=== PATIENT | male | born 1970 | race Caucasian/White ===

== ENCOUNTER 2017-04-29 04:01 | Inpatient (IN) ==
[2017-04-29] MEDS ORDERED: 0.9 % Sodium Chloride 1,000 ML IVC ONE (05:02)
--- NOTE | 2017-04-29 05:15 | Emergency Department Note ---
Disposition Clinical Impression: UTI (urinary tract infection) Qualifiers: Urinary tract infection type: acute cystitis Hematuria presence: without hematuria Qualified Code(s): N30.00 - Acute cystitis without hematuria Sacral decubitus ulcer Qualifiers: Pressure ulcer stage: stage 1 Qualified Code(s): L89.151 - Pressure ulcer of sacral region, stage 1 Disposition: Still a Patient Condition: Good Abdominal Pain HPI - General Chief Complaint: ED Abdominal Pain Stated Complaint: "Can't Urinate/Constipated/Swollen Testicle" Time Seen by Provider: 04/29/17 04:18 Source: patient, family Mode of arrival: ambulatory Limitations: no limitations Nursing Notes Reviewed: Yes Vital Signs Reviewed: Yes - History of Present Illness HPI Narrative: Patient here for evaluation of abdominal pain, testicular pain, dysuria. Patient has a history of otitis. Patient has had 3 days of constipation. Patient began having swelling of his testicle yesterday. Patient self Daily and is uncircumcised. Patient has been having some burning in the penile area. Patient has had a history of both constipation, urinary tract infections, orchitis. Patient states that he has given individual symptoms that are consistent with previous episodes of symptom. Patient states he had a fever of 102 yesterday. Patient is currently tachycardic 119. 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 Patient does have some feeling that his unable to feel specific sensations. Patient notices when he is getting sick 2 to fevers as well as increase headaches. Patient has been experiencing these which she relates to pain in his typical pain and headaches. Abdominal pain is more of a sharp pain located in the left side that is worse with movements and deep palpation. Not associated with nausea vomiting. Patient states that he does feel somewhat bloated and full. Patient's left testicular pain is worse with movements. Associated swelling. Similar to prior orchitis. Patient's penile "leaking". It is similar to his previous urinary tract infections. states that he has been having chills with shakes which she knows is related to possible urinary tract infection. Pain Scale: 5 - Related Data Home Medications Medication Instructions Recorded Confirmed Baclofen [Lioresal] 20 mg PO BID PRN 04/29/17 04/29/17 HYDROcodone/Acet 7.5/325 mg [[place] 1 tab PO QID PRN 04/29/17 04/29/17 7.5-325 mg] Psyllium [Metamucil Fiber Singles 1 packet PO BID 04/29/17 04/29/17 Packet] Allergies Allergy/AdvReac Type Severity Reaction Status Date / Time No Known Allergies Allergy Verified 04/29/17 04:09 Constitutional: Reports: fever, chills, weakness Cardiovascular: Denies: chest pain, palpitations Respiratory: Denies: cough, dyspnea Gastrointestinal: Reports: abdominal pain, constipation. Denies: nausea, vomiting Genitourinary: Reports: dysuria Musculoskeletal: Denies: back pain Integumentary: Reports: lesions (Over the sacrum that is healing but is still stage I sacral decubitus). Denies: abrasion Neurological: Reports: headache, weakness Endocrine: Reports: fatigue Abdominal Pain PMH - Past Medical History Medical history: Reports: other - Social History Smoking status: Current every day smoker Alcohol use: Reports: none Drug use: Reports: none Physical Exam - General Limitations: no limitations General appearance: alert, in no apparent distress - Head Head exam: atraumatic, normocephalic - Eye Eye exam: Present: normal appearance - Neck Neck exam: Present: normal inspection - Chest Chest inspection: Present: normal inspection, symmetric chest wall rise. Absent : tenderness - Respiratory Respiratory exam: Present: normal lung sounds bilaterally, respiratory distress - Cardiovascular Cardiovascular exam: Present: normal rhythm, tachycardia - Abdominal Exam Abdominal exam: Present: soft, tenderness (Left lower quadrant) - Male exam: Present: other (Uncircumcised.) Scrotal exam: testicular tenderness: left, testicular swelling: left - Back Exam Back exam: Present: other (Erythema and some mild superficial skin breakdown in a 7 cm x 10 cm area over the sacrum) - Neurological Exam Neurological exam: Present: alert, oriented X3 - Psychiatric Psychiatric exam: Present: normal affect, normal mood Course - Reevaluation(s) Reevaluation #1: Concern for urinary tract infection as well as possible phlegmon versus abscess. Patient will be given vancomycin as well as Zosyn. Testicular ultrasound is pending. Patient was signed out to Dr. Cox and Dr. Grove. Vital Signs Temperature 98.4 F 04/29/17 04:06 Pulse Rate 119 04/29/17 04:06 Respiratory Rate 16 04/29/17 04:06 Blood Pressure 97/63 04/29/17 04:06 O2 Sat by Pulse Oximetry 99 04/29/17 04:06 Temperature 98.4 F 04/29/17 22:24 Pulse Rate 91 04/30/17 05:48 Respiratory Rate 16 04/30/17 05:48 Blood Pressure 119/70 04/30/17 05:48 O2 Sat by Pulse Oximetry 96 04/30/17 05:48 Oxygen Delivery Oxygen Delivery Room Air Abdominal Pain - Lab Data Result diagrams: 04/30/17 04:15 04/30/17 04:15 Lab Results 04/29/17 04/29/17 04/29/17 Range/Units 05:00 05:00 05:30 WBC 13.7 H (4.3-11.1) K/mcL RBC 4.86 (4.19-5.50) M/mcL Hgb 14.6 (12.9-16.9) g/dL Hct 44.3 (37.5-50.1) % MCV 91.2 (83.0-100.0) fL MCH 30.0 (28.0-33.3) pg MCHC 33.0 (31.6-35.5) g/dL RDW 13.0 (11.5-14.5) % Plt Count 268 (140-400) K/mcL MPV 9.7 (9.4-12.4) fL Immature Gran % 0.5 (0-4) % Seg Neutrophils % 82.7 % Lymphocytes % 6.1 % Monocytes % 10.6 % Eosinophils % 0.0 % Basophils % 0.1 % Neutrophils # 11.3 H (1.6-8.9) K/mcL Lymphocytes # 0.8 (0.6-4.6) K/mcL Monocytes # 1.5 H (0.0-1.3) K/mcL Eosinophils # 0.0 (0.0-0.6) K/mcL Basophils # 0.0 (0.0-0.2) K/mcL Sodium 136 (136-145) mEq/L Potassium 3.8 (3.5-4.5) mEq/L Chloride 103 (98-109) mEq/L Carbon Dioxide 24 (19-29) mEq/L BUN 9 (8-26) mg/dL Creatinine 0.85 (0.72-1.25) mg/dL Est GFR ( Amer) > 60 (> 60) Est GFR (Non-Af Amer) > 60 (> 60) BUN/Creatinine Ratio 11 (6-26) Glucose 104 H (70-99) mg/dL Calculated Osmolality 281 (280-300) Calcium 9.3 (8.6-10.8) mg/dL Total Bilirubin 0.7 (0.2-1.2) mg/dL Direct Bilirubin 0.3 (0.0-0.5) mg/dL Indirect Bilirubin 0.4 (0.0-1.2) mg/dL AST 9 (5-34) Units/L ALT 7 (0-55) Units/L Alkaline Phosphatase 46 (38-126) Units/L Serum Total Protein 7.9 (6.0-8.3) g/dL Albumin 3.6 (3.5-5.0) g/dL Globulin 4.3 H (2.4-3.5) g/dL Albumin/Globulin Ratio 0.8 L (1.1-2.2) Lipase 14 (8-78) Units/L Urine Color Dark Yellow (Yellow) Urine Clarity Hazy (Clear) Urine pH 6.0 (5.0-8.0) pH Units Ur Specific [place] > 1.030 H (1.010-1.025) Urine Protein 30 H (Neg-Trace) mg/dL Urine Glucose (UA) Normal (Normal) mg/dL Urine Ketones 15 H (Negative) mg/dL Urine Blood Moderate H (Negative) Urine Nitrite Positive A (Negative) Urine Bilirubin Small H (Negative) Urine Urobilinogen Normal (Normal) mg/dL Ur Leukocyte Esterase Moderate H (Negative) Urine Microscopic RBC 0-3 (0-3) per hpf Urine Microscopic WBC TNTC H (0-3) per hpf Ur Squamous Epith Cells Moderate H (None-Few) per lpf Urine Bacteria Few (None-Few) per hpf Hyaline Casts Test Not Performed Ur Culture Indicated? YES A (NO) Attestation Statement - Attestation Attestation: I, Antoni Vyas, examined this patient and my medical decision-making was reviewed with the ENDOSCOPE TECHNICIAN/PA/Advanced Practice Nurse/Resident Physician. I agree with the documented findings, disposition and treatment plan as described except to the extent set forth below. 47-year-old male presents with concerns of difficulty with urination and a swollen testicle. Patient states he sustained an injury which caused paralysis distal from T5. Patient states he does not have sensation or motor function below the level of the nipples. Patient states he has had orchitis multiple times in the past and has required admission and antibiotics previously. Patient self catheterizes but states he has had increased difficulty relieving himself of urine within the past 24-[address] of the abdomen shows cellulitis/abscess of the sacrum. Physical exam shows significantly swollen left testicle. Patient was started on antibiotics for orchitis as well as urinary tract infection. Patient care transferred to the day physician pending reevaluation, disposition.
[2017-04-29 05:20] LABS: Basophils % 0.1 %; Hematocrit 44.3 % (37.5-50.1); Hemoglobin 14.6 g/dL (12.9-16.9); Immature Granulocytes % 0.5 % (0-4); Lymphocytes # 0.8 K/mcL (0.6-4.6); Lymphocytes % 6.1 %; Mean Corpuscular Volume 91.2 fL (83.0-100.0); Mean Platelet Volume 9.7 fL (9.4-12.4); Monocytes # 1.5 K/mcL (0.0-1.3); Monocytes % 10.6 %; Neutrophils # 11.3 K/mcL (1.6-8.9); Platelet Count 268 K/mcL (140-400); Red Blood Count 4.86 M/mcL (4.19-5.50); Segmented Neutrophils % 82.7 %
[2017-04-29 05:43] LABS: Alanine Aminotransferase 7 Units/L (0-55); Albumin 3.6 g/dL (3.5-5.0); Albumin/Globulin Ratio 0.8 (1.1-2.2); Alkaline Phosphatase 46 Units/L (38-126); Aspartate Amino Transferase 9 Units/L (5-34); BUN/Creatinine Ratio 11 (6-26); Bilirubin,Direct 0.3 mg/dL (0.0-0.5); Bilirubin,Indirect 0.4 mg/dL (0.0-1.2); Bilirubin,Total 0.7 mg/dL (0.2-1.2); Blood Urea Nitrogen 9 mg/dL (8-26); Calcium 9.3 mg/dL (8.6-10.8); Carbon Dioxide 24 mEq/L (19-29); Chloride 103 mEq/L (98-109); Globulin 4.3 g/dL (2.4-3.5); Glucose 104 mg/dL (70-99); Lipase 14 Units/L (8-78); Osmolality,Calculated 281 (280-300); Potassium 3.8 mEq/L (3.5-4.5); Sodium 136 mEq/L (136-145); Total Protein 7.9 g/dL (6.0-8.3); eGFR For African Americans > 60 (> 60); eGFR For Non-African Americans > 60 (> 60)
[2017-04-29 05:45] LABS: Bilirubin,Urine Small (Negative); Blood,Urine Moderate (Negative); Color,Urine Dark Yellow (Yellow); Glucose,Urine (UA) Normal (Normal); Ketones,Urine 15 mg/dL (Negative); Leukocyte Esterase,Urine Moderate (Negative); Nitrite,Urine Positive (Negative); Protein,Urine 30 mg/dL (Neg-Trace); Specific Gravity,Urine > 1.030 (1.010-1.025); Urobilinogen,Urine Normal (Normal)
[2017-04-29 05:47] LABS: Squamous Epithelial Cell,Urine Moderate per lpf (None-Few); WBC,Urine TNTC per hpf (0-3)
[2017-04-29 05:49] LABS: Clarity,Urine Hazy (Clear)
[2017-04-29 06:02] LABS: Bacteria,Urine Few per hpf (None-Few); RBC,Urine 0-3 per hpf (0-3)
[2017-04-29] MEDS ORDERED: Piperacillin/Tazobactam 3.375 GM in D5% in Water (Mini-Bag+) 100 ML IVPB ONE (06:43)
[2017-04-29] MEDS ORDERED: Vancomycin 1,000 MG in D5% in Water 250 ML IVPB ONE (06:43)
--- NOTE | 2017-04-29 07:47 | Emergency Department Note ---
Disposition Clinical Impression: UTI (urinary tract infection) Qualifiers: Urinary tract infection type: acute cystitis Hematuria presence: with hematuria Qualified Code(s): N30.01 - Acute cystitis with hematuria Sacral decubitus ulcer Qualifiers: Pressure ulcer stage: stage 1 Qualified Code(s): L89.151 - Pressure ulcer of sacral region, stage 1 Disposition: Still a Patient Condition: Good Referrals: Avani Newberry, MARKETING SERVICES MANAGER [Primary Care Provider] - Forms: ED Satisfaction Letter, Work/School Release General Adult HPI - General Chief complaint: ED Abdominal Pain Stated complaint: "Can't Urinate/Constipated/Swollen Testicle" Time Seen by Provider: 04/29/17 04:18 Source: patient, family Mode of arrival: ambulatory Limitations: no limitations - History of Present Illness Pain Scale: 5 - Related Data Home Medications Medication Instructions Recorded Confirmed Baclofen [Lioresal] 20 mg PO BID PRN 04/29/17 04/29/17 HYDROcodone/Acet 7.5/325 mg [[place] 1 tab PO QID PRN 04/29/17 04/29/17 7.5-325 mg] Psyllium [Metamucil Fiber Singles 1 packet PO BID 04/29/17 04/29/17 Packet] Allergies Allergy/AdvReac Type Severity Reaction Status Date / Time No Known Allergies Allergy Verified 04/29/17 04:09 Constitutional: Reports: fever, chills, weakness Cardiovascular: Denies: chest pain, palpitations Respiratory: Denies: cough, dyspnea Gastrointestinal: Reports: abdominal pain, constipation. Denies: nausea, vomiting Genitourinary: Reports: dysuria Musculoskeletal: Denies: back pain Integumentary: Reports: lesions (Over the sacrum that is healing but is still stage I sacral decubitus). Denies: abrasion Neurological: Reports: headache, weakness Endocrine: Reports: fatigue Past Medical History - Past Medical History Medical history: Reports: other - Social History Smoking Status: Current every day smoker Smokeless Tobacco Status: No Alcohol use: Reports: none Drug use: Reports: none Physical Exam - General Limitations: no limitations General appearance: alert, in no apparent distress Course Vital Signs Temperature 98.4 F 04/29/17 04:06 Pulse Rate 119 04/29/17 04:06 Respiratory Rate 16 04/29/17 04:06 Blood Pressure 97/63 04/29/17 04:06 O2 Sat by Pulse Oximetry 99 04/29/17 04:06 Temperature 98.4 F 04/29/17 04:06 Pulse Rate 119 04/29/17 04:06 Respiratory Rate 16 04/29/17 04:06 Blood Pressure 97/63 04/29/17 04:06 O2 Sat by Pulse Oximetry 99 04/29/17 04:06 Oxygen Delivery Oxygen Delivery Room Air Medical Decision Making - Lab Data Result diagrams: 04/29/17 05:00 04/29/17 05:00 Lab Results 04/29/17 04/29/17 04/29/17 Range/Units 05:00 05:00 05:30 WBC 13.7 H (4.3-11.1) K/mcL RBC 4.86 (4.19-5.50) M/mcL Hgb 14.6 (12.9-16.9) g/dL Hct 44.3 (37.5-50.1) % MCV 91.2 (83.0-100.0) fL MCH 30.0 (28.0-33.3) pg MCHC 33.0 (31.6-35.5) g/dL RDW 13.0 (11.5-14.5) % Plt Count 268 (140-400) K/mcL MPV 9.7 (9.4-12.4) fL Immature Gran % 0.5 (0-4) % Seg Neutrophils % 82.7 % Lymphocytes % 6.1 % Monocytes % 10.6 % Eosinophils % 0.0 % Basophils % 0.1 % Neutrophils # 11.3 H (1.6-8.9) K/mcL Lymphocytes # 0.8 (0.6-4.6) K/mcL Monocytes # 1.5 H (0.0-1.3) K/mcL Eosinophils # 0.0 (0.0-0.6) K/mcL Basophils # 0.0 (0.0-0.2) K/mcL Sodium 136 (136-145) mEq/L Potassium 3.8 (3.5-4.5) mEq/L Chloride 103 (98-109) mEq/L Carbon Dioxide 24 (19-29) mEq/L BUN 9 (8-26) mg/dL Creatinine 0.85 (0.72-1.25) mg/dL Est GFR ( Amer) > 60 (> 60) Est GFR (Non-Af Amer) > 60 (> 60) BUN/Creatinine Ratio 11 (6-26) Glucose 104 H (70-99) mg/dL Calculated Osmolality 281 (280-300) Calcium 9.3 (8.6-10.8) mg/dL Total Bilirubin 0.7 (0.2-1.2) mg/dL Direct Bilirubin 0.3 (0.0-0.5) mg/dL Indirect Bilirubin 0.4 (0.0-1.2) mg/dL AST 9 (5-34) Units/L ALT 7 (0-55) Units/L Alkaline Phosphatase 46 (38-126) Units/L Serum Total Protein 7.9 (6.0-8.3) g/dL Albumin 3.6 (3.5-5.0) g/dL Globulin 4.3 H (2.4-3.5) g/dL Albumin/Globulin Ratio 0.8 L (1.1-2.2) Lipase 14 (8-78) Units/L Urine Color Dark Yellow (Yellow) Urine Clarity Hazy (Clear) Urine pH 6.0 (5.0-8.0) pH Units Ur Specific [place] > 1.030 H (1.010-1.025) Urine Protein 30 H (Neg-Trace) mg/dL Urine Glucose (UA) Normal (Normal) mg/dL Urine Ketones 15 H (Negative) mg/dL Urine Blood Moderate H (Negative) Urine Nitrite Positive A (Negative) Urine Bilirubin Small H (Negative) Urine Urobilinogen Normal (Normal) mg/dL Ur Leukocyte Esterase Moderate H (Negative) Urine Microscopic RBC 0-3 (0-3) per hpf Urine Microscopic WBC TNTC H (0-3) per hpf Ur Squamous Epith Cells Moderate H (None-Few) per lpf Urine Bacteria Few (None-Few) per hpf Hyaline Casts Test Not Performed Ur Culture Indicated? YES A (NO) Attestation Statement - Attestation Attestation: Care assumed from at 7 AM pending admission to the medicine service. Patient presents with systemic symptoms and was tachycardic at triage. He was found to have an early cellulitis of his buttocks by CT scan as well as epididymitis. He has a history of paraplegia. He straight caths. Buttocks initiated by the previous team. Patient to be admitted to the medicine service. accepts
[2017-04-29] MEDS ORDERED: Acetaminophen 325 MG TABLET PO PRN (07:59)
[2017-04-29] MEDS ORDERED: Naloxone 0.4 MG/ML INJ IVP PRN (07:59)
[2017-04-29] MEDS ORDERED: Ondansetron 4 MG/2 ML VIAL IVP PRN (07:59)
--- NOTE | 2017-04-29 08:07 | Internal Med History&Physical ---
Date of Encounter: 04/29/17 Time of Encounter: 08:03 Assessment and Plan (1) Sepsis Current visit: Yes Status: Acute Sepsis secondary to left acute epididymitis in combination with sacral cellulitis with possible early phlegmon Start doxycycline to cover for acute cellulitis and other possible infectious agents that can cause epididymitis Start Levaquin as epididymoorchitis can be caused by enteric bacteria Check gonococcus and Chlamydia, may administer Rocephin if positive for gonococcus Urine culture, IV fluids, lactic acid, blood cultures Consider urology consult if not improving, consider surgical consult if pressure ulcer is not improving as well Omeprazole for GI prophylaxis and subcutaneous heparin for deep prophylaxis. The patient will be admitted as inpatient, expected to stay more than 2 midnights. Full code. Time spent on this admission 40 minutes. I risk due to sepsis Qualifiers: Sepsis type: sepsis due to unspecified organism Qualified Code(s): A41.9 - Sepsis, unspecified organism (2) Tobacco abuse Current visit: Yes Status: Acute Smoking cessation counseling given for 5 minutes. Nicotine patch (3) Leukocytosis Current visit: Yes Status: Acute Secondary to sepsis Qualifiers: Leukocytosis type: unspecified Qualified Code(s): D72.829 - Elevated white blood cell count, unspecified (4) Paraplegia Current visit: Yes Status: Acute Secondary to T5 spinal injury in the past (5) Sacral decubitus ulcer Current visit: Yes Status: Acute Qualifiers: Pressure ulcer stage: stage 1 Qualified Code(s): L89.151 - Pressure ulcer of sacral region, stage 1 (6) UTI (urinary tract infection) Current visit: Yes Status: Acute History of recurrent urinary tract infections Qualifiers: Urinary tract infection type: acute cystitis Hematuria presence: without hematuria Qualified Code(s): N30.00 - Acute cystitis without hematuria Internal Medicine - H&P: HPI Chief complaint: Fever Admitted From: Emergency Dept History of present illness: Mr. 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 His UA shows positive nitrates too numerous to count white blood cells, ultrasound shows left epididymitis. A CT scan of the abdomen and pelvis showed left epididymitis and cellulitis on the sacrum that appears to have possible an early phlegmon. Patient says that he had an ulcer in the sacrum has been improving and denies any sensitivity that area. The patient is tachycardic at 119 blood pressure 97/63 white blood cell count 13.7. Received vancomycin and Zosyn at the emergency room. Denies any other complaints Past Med Surg Social Fam HX - Past Medical History Medical history: other (UTIs, tobacco use, paraplegia) - Past Surgical History Surgical History: other (Spinal injury at T5, right shoulder surgery) - Social History Smoking Status: Current every day smoker Packs per day: 1 Smokeless Tobacco Status: No Alcohol use: none Drug use: none - Additional Family History Additional family history: Mother with ovarian cancer Internal Medicine - H&P: Meds Baclofen [Lioresal] 20 mg PO BID PRN 04/29/17 [History] HYDROcodone/Acet 7.5/325 mg [[place] 7.5-325 mg] 1 tab PO QID PRN 04/29/17 [ History] Psyllium [Metamucil Fiber Singles Packet] 1 packet PO BID 04/29/17 [History] Allergies No Known Allergies Allergy (Verified 04/29/17 04:09) All Systems PM: A 10-system review of systems was performed and is negative for pertinent findings except as documented above in the HPI. Review of systems: Mild dysuria, weakness, fever. Other systems out of the 10 reviewed were negative - Constitutional Vitals: Temp Pulse Resp BP Pulse Ox 98.4 F 85 16 104/66 97 04/29/17 04:06 04/29/17 07:46 04/29/17 07:46 04/29/17 07:46 04/29/17 07:46 General appearance: Present: A&O X 3 - Head Head exam: Present: atraumatic, normocephalic - Eye Eye exam: Present: PERRL, conjuntiva pink, sclera anicteric Pupils: Present: PERRL - Neck Neck exam general surgery: Present: supple, trachea midline. Absent: lymphadenopathy - Respiratory Respiratory exam: Present: CTAB. Absent: accessory muscle use, rales, rhonchi, wheezes - Cardiovascular Cardiovascular exam: Present: RRR, +S1, +S2. Absent: diastolic murmur, gallop, rubs, systolic murmur - GI/Abdominal GI/Abdominal exam: Present: normal bowel sounds, soft, no peritoneal signs. Absent: distended, tenderness - Extremities Exam Extremities exam: Present: warm, radial pulses palpable and symetrical. Absent : calf tenderness, cyanotic, pedal edema - Neurological Exam Neurological exam: Present: CN II-XII intact, oriented X3. Absent: no focal deficits, pronater drift, facial droop, speech deficit - Skin Skin exam: Present: dry. Absent: intact Additional comments: Testicular tenderness on the left side, severe edema and erythema Stage I pressure ulcer on the sacrum with surrounding cellulitis Internal Med - H&P Results - Labs CBC & Chem 7: 04/29/17 05:00 04/29/17 05:00 Labs: Short CBC 04/29/17 Range/Units 05:00 WBC 13.7 H (4.3-11.1) K/mcL Hgb 14.6 (12.9-16.9) g/dL Hct 44.3 (37.5-50.1) % Plt Count 268 (140-400) K/mcL Neutrophils # 11.3 H (1.6-8.9) K/mcL BMP 04/29/17 05:00 Sodium 136 Potassium 3.8 Chloride 103 Carbon Dioxide 24 BUN 9 Creatinine 0.85 Glucose 104 H Calcium 9.3 Liver Function 04/29/17 Range/Units 05:00 Total Bilirubin 0.7 (0.2-1.2) mg/dL Direct Bilirubin 0.3 (0.0-0.5) mg/dL AST 9 (5-34) Units/L ALT 7 (0-55) Units/L Alkaline Phosphatase 46 (38-126) Units/L Albumin 3.6 (3.5-5.0) g/dL Urine 04/29/17 Range/Units 05:30 Urine Color Dark Yellow (Yellow) Urine Clarity Hazy (Clear) Urine pH 6.0 (5.0-8.0) pH Units Ur Specific [place] > 1.030 H (1.010-1.025) Urine Protein 30 H (Neg-Trace) mg/dL Urine Glucose (UA) Normal (Normal) mg/dL - Impressions ITS Impressions Scrotum Ultrasound 04/29/17 05:03 IMPRESSION: Left-sided epididymitis. D/ / Quinn Rucker MD / Quinn Rucker MD Interpreting Provider: Quinn Rucker MD Abdomen/Pelvis CT 04/29/17 05:04 IMPRESSION: 1. No acute findings in the abdomen or pelvis. 2. Probable left-sided epididymitis. 3. There is inflammation in the subcutaneous fat of the gluteal regions bilaterally with phlegmon or early abscess formation on the left. D/ / Quinn Rucker MD / Quinn Rucker MD Interpreting Provider: Quinn Rucker MD
[2017-04-29] MEDS: *HR* HYDROcodone/Acet 7.5/325 mg TABLET PO PRN ×2 (09:47→16:56)
[2017-04-29] MEDS: Ketorolac 30 MG/ML VIAL IVP PRN ×2 (11:08→21:48)
[2017-04-29] MEDS: Doxycycline 100 MG in 0.9 % Sodium Chloride Mini Bag 100 ML IVPB SCH ×2 (11:11→16:51)
[2017-04-29] MEDS: 0.9 % Sodium Chloride 1,000 ML IVC SCH ×2 (11:12→23:35)
[2017-04-29] MEDS: Nicotine 21 MG PATCH.TD24 TD SCH (11:18)
[2017-04-29] MEDS: Psyllium 1 PACKET POWD.PACK PO SCH ×2 (11:19→21:43)
[2017-04-29] MEDS: Baclofen 10 MG TABLET PO PRN ×2 (11:30→21:49)
[2017-04-29] MEDS: Levofloxacin 750 MG/150 ML 750 MG/150 ML BAG IVPB SCH (13:07)
[2017-04-29] MEDS: *HR* Heparin 5,000 UNIT/ML VIAL SQ SCH (16:52)
[2017-04-30 04:50] LABS: Hematocrit 35.3 % (37.5-50.1); Mean Corpuscular HGB Conc 33.1 g/dL (31.6-35.5); Mean Corpuscular Hemoglobin 30.2 pg (28.0-33.3); Mean Corpuscular Volume 91.2 fL (83.0-100.0); Platelet Count 206 K/mcL (140-400); Red Blood Count 3.87 M/mcL (4.19-5.50); Red Cell Distribution Width 13.1 % (11.5-14.5)
[2017-04-30 04:51] LABS: Hemoglobin 11.7 g/dL (12.9-16.9)
[2017-04-30 05:03] LABS: BUN/Creatinine Ratio 13 (6-26); Blood Urea Nitrogen 9 mg/dL (8-26); Calcium 8.7 mg/dL (8.6-10.8); Carbon Dioxide 24 mEq/L (19-29); Chloride 110 mEq/L (98-109); Glucose 82 mg/dL (70-99); Osmolality,Calculated 284 (280-300); Potassium 4.6 mEq/L (3.5-4.5); Sodium 138 mEq/L (136-145); eGFR For African Americans > 60 (> 60); eGFR For Non-African Americans > 60 (> 60)
[2017-04-30] MEDS: *HR* Heparin 5,000 UNIT/ML VIAL SQ SCH ×2 (05:47→16:28)
[2017-04-30] MEDS: Doxycycline 100 MG in 0.9 % Sodium Chloride Mini Bag 100 ML IVPB SCH ×2 (05:47→16:28)
[2017-04-30] MEDS: Ketorolac 30 MG/ML VIAL IVP PRN (05:53)
[2017-04-30] MEDS: *HR* HYDROcodone/Acet 7.5/325 mg TABLET PO PRN ×2 (09:38→20:38)
[2017-04-30] MEDS: Baclofen 10 MG TABLET PO PRN ×2 (09:39→20:39)
[2017-04-30] MEDS: Psyllium 1 PACKET POWD.PACK PO SCH ×2 (09:39→20:32)
[2017-04-30] MEDS: Nicotine 21 MG PATCH.TD24 TD SCH (09:39)
[2017-04-30] MEDS: Levofloxacin 750 MG/150 ML 750 MG/150 ML BAG IVPB SCH (09:41)
--- NOTE | 2017-04-30 11:29 | Internal Med Progress Note ---
Date of Encounter: 04/30/17 Time of Encounter: 11:29 - Assessment and plan (1) Sepsis Current Visit: Yes Status: Resolved Assessment and plan: Secondary to left acute epididymitis/UTI will continue IV abx at this time pt clinically improving, will continue IV abx at this time urine culture prelim positive for gram negative rods, will follow up official cultures will transition to PO abx in am and likely d/c in am if remains clinically stable overnight Qualifiers: Sepsis type: sepsis due to unspecified organism Qualified Code(s): A41.9 - Sepsis, unspecified organism (2) UTI (urinary tract infection) Current Visit: Yes Status: Acute Assessment and plan: as listed above Qualifiers: Urinary tract infection type: acute cystitis Hematuria presence: without hematuria Qualified Code(s): N30.00 - Acute cystitis without hematuria (3) Sacral decubitus ulcer Current Visit: Yes Status: Chronic Qualifiers: Pressure ulcer stage: stage 1 Qualified Code(s): L89.151 - Pressure ulcer of sacral region, stage 1 (4) Tobacco abuse Current Visit: Yes Status: Chronic Assessment and plan: smoking cessation counseling provided nicotine supplementation provided (5) Paraplegia Current Visit: Yes Status: Chronic - Subjective Interval history: Patient seen and examined at bedside. reports of feeling significantly better compared to previous day. Reported of clear penile discharge earlier this morning but states no purulent discharge noted. States he has noted decrease in scrotal edema and erythema. No overnight issues reported. Pt is wheelchair bound at baseline and straight caths at home. - Constitutional Vitals: Temp Pulse Resp BP Pulse Ox 98.3 F 89 20 110/67 96 04/30/17 10:54 04/30/17 10:54 04/30/17 10:54 04/30/17 10:54 04/30/17 05:48 General appearance: Present: cooperative, A&O X 3, no acute distress, answers questions appropriately - Head Head exam: Present: atraumatic, normocephalic - Eye Eye exam: Present: conjuntiva pink, sclera anicteric - Respiratory Respiratory exam: Present: CTAB. Absent: accessory muscle use, rales, rhonchi, wheezes - Cardiovascular Cardiovascular exam: Present: RRR, +S1, +S2. Absent: diastolic murmur, gallop, rubs, systolic murmur - GI/Abdominal GI/Abdominal exam: Present: normal bowel sounds, soft, no peritoneal signs. Absent: distended, tenderness - Additional comments: mild scrotal edema and erythema noted - Extremities Exam Extremities exam: Present: warm, radial pulses palpable and symetrical. Absent : calf tenderness, cyanotic, pedal edema - Neurological Exam Neurological exam: Present: alert, oriented X3 - Psychiatric Psychiatric exam: Present: normal affect, normal mood Internal Medicine: Result - Labs CBC & Chem 7: 04/30/17 04:15 04/30/17 04:15 Labs: Short CBC 04/30/17 Range/Units 04:15 WBC 9.6 (4.3-11.1) K/mcL Hgb 11.7 L D (12.9-16.9) g/dL Hct 35.3 L (37.5-50.1) % Plt Count 206 (140-400) K/mcL BMP 04/30/17 04:15 Sodium 138 Potassium 4.6 H Chloride 110 H Carbon Dioxide 24 BUN 9 Creatinine 0.68 L Glucose 82 Calcium 8.7 Consult Discharge Plan - Plan Referrals: Avani Newberry, CR[employer]ER [Primary Care Provider] -
[2017-05-01 04:08] VITALS: BP 128/78
[2017-05-01 05:19] LABS: Basophils % 0.2 %; Eosinophils # 0.1 K/mcL (0.0-0.6); Eosinophils % 1.3 %; Hematocrit 35.6 % (37.5-50.1); Hemoglobin 11.9 g/dL (12.9-16.9); Immature Granulocytes % 0.4 % (0-4); Lymphocytes % 17.5 %; Mean Corpuscular HGB Conc 33.4 g/dL (31.6-35.5); Mean Corpuscular Hemoglobin 30.8 pg (28.0-33.3); Mean Corpuscular Volume 92.2 fL (83.0-100.0); Mean Platelet Volume 10.4 fL (9.4-12.4); Monocytes # 0.5 K/mcL (0.0-1.3); Monocytes % 8.2 %; Platelet Count 219 K/mcL (140-400); Red Blood Count 3.86 M/mcL (4.19-5.50); Red Cell Distribution Width 13.2 % (11.5-14.5); Segmented Neutrophils % 72.4 %
[2017-05-01 05:39] LABS: BUN/Creatinine Ratio 9 (6-26); Blood Urea Nitrogen 6 mg/dL (8-26); Calcium 8.8 mg/dL (8.6-10.8); Carbon Dioxide 24 mEq/L (19-29); Chloride 109 mEq/L (98-109); Glucose 147 mg/dL (70-99); Magnesium 1.7 mg/dL (1.6-2.6); Osmolality,Calculated 290 (280-300); Phosphorous 2.7 mg/dL (2.3-4.7); Sodium 140 mEq/L (136-145); eGFR For African Americans > 60 (> 60); eGFR For Non-African Americans > 60 (> 60)
[2017-05-01 05:43] LABS: Potassium 3.5 mEq/L (3.5-4.5)
[2017-05-01] MEDS: Doxycycline 100 MG in 0.9 % Sodium Chloride Mini Bag 100 ML IVPB SCH (06:34)
[2017-05-01] MEDS: *HR* Heparin 5,000 UNIT/ML VIAL SQ SCH (06:35)
[2017-05-01] MEDS: Baclofen 10 MG TABLET PO PRN (09:13)
[2017-05-01] MEDS: Psyllium 1 PACKET POWD.PACK PO SCH (09:13)
[2017-05-01] MEDS: Nicotine 21 MG PATCH.TD24 TD SCH (09:13)
[2017-05-01] MEDS: Levofloxacin 750 MG/150 ML 750 MG/150 ML BAG IVPB SCH (09:14)
[2017-05-01] MEDS ORDERED: levoFLOXacin 750 MG TABLET PO SCH (10:15)
[2017-05-01] MEDS ORDERED: Doxycycline 100 MG CAPSULE PO SCH (10:15)
--- NOTE | 2017-05-01 10:29 | Discharge Summary ---
Date of Encounter: 05/01/17 Time of Encounter: 10:24 - Discharge Diagnosis (1) Epididymitis Priority: Primary Status: Acute (2) Sepsis Priority: Primary Status: Resolved Qualifiers: Sepsis type: sepsis due to unspecified organism Qualified Code(s): A41.9 - Sepsis, unspecified organism (3) UTI (urinary tract infection) Priority: Primary Status: Acute Qualifiers: Urinary tract infection type: acute cystitis Hematuria presence: without hematuria Qualified Code(s): N30.00 - Acute cystitis without hematuria (4) Sacral decubitus ulcer Priority: Secondary Status: Chronic Qualifiers: Pressure ulcer stage: stage 1 Qualified Code(s): L89.151 - Pressure ulcer of sacral region, stage 1 (5) Tobacco abuse Priority: Secondary Status: Chronic (6) Paraplegia Priority: Secondary Status: Chronic - Discharge Medications Prescriptions: levoFLOXacin [Levaquin] 750 mg PO DAILY #7 tab Home Medications: Baclofen [Lioresal] 20 mg PO BID PRN 04/29/17 [History] HYDROcodone/Acet 7.5/325 mg [[place] 7.5-325 mg] 1 tab PO QID PRN 04/29/17 [ History] Psyllium [Metamucil Fiber Singles Packet] 1 packet PO BID 04/29/17 [History] levoFLOXacin [Levaquin] 750 mg PO DAILY #7 tab 05/01/17 [Rx] Allergies/Adverse Reactions: Allergies No Known Allergies Allergy (Verified 04/29/17 04:09) Date of admission: 04/29/17 08:16 Primary care physician: Avani Newberry CNP Discharging clinician: Kimber Arce Anticipated date of discharge: 05/01/17 - Patient Status Disposition: Home, Self-Care Condition: Good Functional capacity at discharge: wheelchair bound Overall status at discharge: patient is back to baseline - Discharge Instructions Follow Up With: Avani Newberry CNP [Primary Care Provider] - Additional Instructions: Please follow up with your primary care physician and urologist within one week after your discharge from the hospital Please continue oral antibiotics as prescribed. Please resume all your home medications as prescribed by your primary care physician. - Diet and Activity Activity: resume usual activities as tolerated Diet: low salt diet Hospital course: Mr. 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 Patient was further admitted for treatment of epididmytis and UTI. He was found to be initially septic secondary to UTI and epididmytis and responded well to IV abx. His sepsis resolved and reports of feeling significantly better since admission. He will be discharged to home with oral antibiotics with a follow up with PCP and urology. Patient demonstrates understanding of his diagnosis and agrees with the discharge care and plan. - Time Spent with Patient Total time spent providing and/or coordinating discharge services: Less than 30 minutes - Constitutional Vitals: Temp Pulse Resp BP Pulse Ox 98.4 F 96 16 128/78 97 05/01/17 04:05 05/01/17 04:05 05/01/17 04:05 05/01/17 04:05 05/01/17 05:12 General appearance: Present: cooperative, A&O X 3, pleasant, no acute distress, answers questions appropriately - Head Head exam: Present: atraumatic, normocephalic - Eye Eye exam: Present: conjuntiva pink, sclera anicteric - Respiratory Respiratory exam: Present: CTAB. Absent: accessory muscle use, rales, rhonchi, wheezes - Cardiovascular Cardiovascular exam: Present: RRR, +S1, +S2. Absent: diastolic murmur, gallop, rubs, systolic murmur - GI/Abdominal GI/Abdominal exam: Present: normal bowel sounds, soft, no peritoneal signs. Absent: distended, tenderness - Extremities Exam Extremities exam: Present: warm, radial pulses palpable and symetrical. Absent : calf tenderness - Neurological Exam Neurological exam: Present: alert, oriented X3 - Psychiatric Psychiatric exam: Present: normal affect, normal mood
== END 2017-05-01 14:00 | disposition home or self-care (01) | DRG 872 ==
LOC: EMEROO 04:01 → 2NENU 08:16
PROVIDERS: ADMIT Internal Medicine; ATTEND Internal Medicine